=== PATIENT | male | born 1970 | race Caucasian/White ===

== ENCOUNTER 2017-12-08 17:12 | Emergency (ER) | payer OTHER ==
[2017-12-08 17:30] VITALS: BP 131/85
--- NOTE | 2017-12-08 17:55 | EDPHY ---
H & P Stated Complaint: left calf inj Time Seen by Provider: 12/08/17 17:29 HPI/ROS: CHIEF COMPLAINT: Left calf pain HISTORY OF PRESENT ILLNESS: The patient is a 47-year-old man who comes to the emergency department complaining of left calf pain. He states that he was running up the "warp wall" at the [employer] exercise gym when he felt a pain in his left calf. He thought that maybe he accidentally kicked himself with his other foot but he was not sure. He can ambulate but has pain with flexing of his calf muscle. He denies other injuries. No knee or ankle pain. REVIEW OF SYSTEMS: Constitutional: denies: chills, fever, recent illness, recent injury EENTM: denies: blurred vision, double vision, nose congestion Respiratory: denies: cough, shortness of breath Cardiac: denies: chest pain, irregular heart rate, lightheadedness, palpitations Gastrointestinal/Abdominal: denies: abdominal pain, diarrhea, nausea, vomiting, blood streaked stools Genitourinary: denies: dysuria, frequency, hematuria, pain Musculoskeletal: See HPI Skin: denies: lesions, rash, jaundice, bruising Neurological: denies: headache, numbness, paresthesia, tingling, dizziness, weakness Hematologic/Lymphatic: denies: blood clots, easy bleeding, easy bruising Immunologic/allergic: denies: HIV/AIDS, transplant EXAM: GENERAL: Well-appearing, well-nourished and in no acute distress. HEAD: Atraumatic, normocephalic. EYES: Pupils equal round and reactive to light, extraocular movements intact, sclera anicteric, conjunctiva are normal. ENT: TMs normal, nares patent, oropharynx clear without exudates. Moist mucous membranes. NECK: Normal range of motion, supple without lymphadenopathy or JVD. LUNGS: Breath sounds clear to auscultation bilaterally and equal. No wheezes rales or rhonchi. HEART: Regular rate and rhythm without murmurs, rubs or gallops. ABDOMEN: Soft, nontender, normoactive bowel sounds. No guarding, no rebound. No masses appreciated. BACK: No CVA tenderness, no spinal tenderness, step-offs or deformities EXTREMITIES: Pain in left calf, pain with flex a escobar of calf muscle, pain with massage of left calf muscle. Normal knee and ankle joint stability. No significant swelling or contusion. NEUROLOGICAL: Cranial nerves II through XII grossly intact. Normal speech, normal gait. 5/5 strength, normal movement in all extremities, normal sensation PSYCH: Normal mood, normal affect. SKIN: Warm, dry, normal turgor, no visible rashes or lesions. Source: Patient Exam Limitations: No limitations - Personal History Current Tetanus/Diphtheria Vaccine: Unsure Current Tetanus Diphtheria and Acellular Pertussis (TDAP): Unsure - Medical/Surgical History Hx Asthma: No Hx Chronic Respiratory Disease: No Hx Diabetes: No Hx Cardiac Disease: No Hx Renal Disease: No Hx Cirrhosis: No Hx Alcoholism: No Hx HIV/AIDS: No Hx Splenectomy or Spleen Trauma: No Other PMH: denies - Family History Significant Family History: No pertinent family hx - Social History Smoking Status: Never smoked Alcohol Use: Sober Constitutional: Initial Vital Signs Temperature (C) 36.9 C 12/08/17 17:24 Heart Rate 72 12/08/17 17:24 Respiratory Rate 16 12/08/17 17:24 Blood Pressure 131/85 H 12/08/17 17:24 O2 Sat (%) 94 12/08/17 17:24 O2 Delivery Mode Room Air Allergies/Adverse Reactions: No Known Allergies Allergy (Unverified 12/08/17 17:30) Home Medications: Medication Instructions Recorded NK [No Known Home Meds] 12/08/17 Medical Decision Making Procedures: Procedure: Splint placement. A cm some boot splint was applied. After application of the splint I returned and re-examined the patient. The splint was adequately immobilizing the joint and distal to the splint the patient's circulation and sensation was intact. ED Course/Re-evaluation: We discussed the plan which is essentially rest and anti-inflammatories and ice. The patient inquired about an MRI that we discussed the fact that it is not available at this facility and is unnecessary in the vast majority of cases. We agreed on conservative management 1st and if he is not improving over the next few weeks I will refer him to Orthopedics who may obtain MRI and discuss other possible treatment options. He is happy with this plan and declines further treatment at this time. Differential Diagnosis: Partial list of the Differential diagnosis considered include but were not limited to; gastrocnemius tear, soleus tear and although unlikely based on the history and physical exam, I also considered Achilles tendon injury, knee injury , ankle injury, infection, fracture. I discussed these differential diagnoses and the plan with the patient as well as the usual and expected course. The patient understands that the diagnosis is provisional and that in medicine we are not always correct and that further workup is often warranted. Usual and customary warnings were given. All of the patient's questions were answered. The patient was instructed to return to the emergency department should the symptoms at all worsen or return, otherwise to followup with the physician as we discussed. Departure - Departure Disposition: Home, Routine, Self-Care Clinical Impression: Gastrocnemius strain, left Qualifiers: Encounter type: initial encounter Qualified Code(s): S86.112A - Strain of other muscle(s) and tendon(s) of posterior muscle group at lower leg level, left leg, initial encounter Condition: Fair Instructions: Muscle Strain (ED) Additional Instructions: Levi boot for rest and weight-bearing as tolerated. May remove as tolerated. Referrals: NONE *PRIMARY CARE P,. [Primary Care Provider] - As per Instructions Dennis Marshall MD [Medical Doctor] - 5-7 days, if not improved Stand Alone Forms: Work Excuse
== END 2017-12-08 18:30 | disposition home or self-care (01) ==
LOC: EDSEX → CED 17:12
DX: S86.112A Strain of other muscle(s) and tendon(s) of posterior muscle group at lower leg level, left leg, initial encounter (principal); X58.XXXA Exposure to other specified factors, initial encounter; Y99.8 Other external cause status; Y93.02 Activity, running
CPT/HCPCS: L4386